=== PATIENT | male | born 2000 | race African-American/Black ===

== ENCOUNTER 2023-11-24 14:08 | Emergency (ER) | payer SELFPAY ==
[2023-11-24 14:09] VITALS: PULSE 75; RESP 16; TEMP 36.9; O2SAT 98
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
[2023-11-24 14:25] VITALS: BP 157/68
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
[2023-11-24 14:44] LABS: Abs Immature Grans 0.01 10^3/uL (0.0-0.06); Absolute Basophil Count 0.05 10^3/uL (0.0-0.2); Absolute Eosinophil Count 0.05 10^3/uL (0.0-0.7); Absolute Lymphocyte Count 2.33 10^3/uL (1.2-3.4); Absolute Monocyte Count 0.51 10^3/uL (0.1-0.8); Absolute Neutrophil Count 2.75 10^3/uL (1.2-6.7); Basophils % 0.9 %; Eosinophils % 0.9 %; HCT 40.9 % (40.0-50.0); HGB 13.1 g/dL (13.5-17.5); Immature Grans % 0.2 %; Lymphocytes % 40.9 %; MCH 29.4 pg (27.0-33.0); MCV 92 fL (80-95); MPV 9.7 fL (8.0-11.0); Monocytes % 8.9 %; Neutrophils % 48.2 %; Platelet Count 250 10^3/uL (130-400); RBC 4.46 10^6/uL (4.36-5.78); RDW 11.9 % (11.8-14.1); RDW-SD 40.1 fL
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
[2023-11-24 14:58] LABS: ALT 26 U/L (16-63); AST 20 U/L (15-37); Albumin 4.1 g/dL (3.4-5.0); Alkaline Phosphatase 113 U/L (46-116); Anion Gap 8.6 mmol/L (3-11); BUN 12 mg/dL (7-18); Bilirubin, Total 0.4 mg/dL (0.2-1.0); CO2 27.4 mmol/L (21.0-32.0); Calcium 8.9 mg/dL (8.5-10.1); Chloride 106 mmol/L (98-107); Estimated GFR 108.46 (mL/min/1.73m2); Glucose 91 mg/dL (74-106); Potassium 3.5 mmol/L (3.5-5.1); Sodium 142 mmol/L (136-145); Total Protein 7.3 g/dL (6.4-8.2)
--- NOTE | 2023-11-24 14:58 | NUR.NOTE ---
Nursing Note: pateint reports 8/10 right back pain, provider aware.
[2023-11-24] MEDS: ACETAMINOPHEN 1,000 MG/100 ML BTL 400 MG IVPB (15:00)
[2023-11-24] MEDS: Normal Saline 1,000 ML 1000 ML IV (15:00)
[2023-11-24] MEDS: Omnipaque 350 MG/ML 100 ML BTL IJ (15:10)
[2023-11-24] MEDS: Normal Saline - Diluent 50 ML VIAL IJ (15:11)
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
--- NOTE | 2023-11-24 15:52 | NUR.NOTE ---
Nursing Note: per Dr Sarabia C-spine cleared. ED dr gave orders to take C-collar off. Patient happy to take off c-collar
[2023-11-24 17:10] VITALS: BP 144/80; PULSE 82; RESP 16; O2SAT 98
== END 2023-11-24 17:18 | disposition home or self-care (01) ==
LOC: ER 17:41
PROVIDERS: Emergency Provider Emergency Medicine
DX: M79.674 Pain in right toe(s) (principal); R51.9 Headache, unspecified; V48.5XXA Car driver injured in noncollision transport accident in traffic accident, initial encounter; M54.2 Cervicalgia
CPT/HCPCS: 36415; 74177; 80053; 96360; 99285; 70450; 71260; 72125; 73630; 85025; 99283; J0131; J3490